=== PATIENT | female | born 2000 | race Two or more races ===

== ENCOUNTER 2022-09-14 19:10 | Emergency (ER) | payer OTHER ==
[2022-09-14 20:09] VITALS: BP 116/77
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
--- NOTE | 2022-09-14 21:16 | XRAY Report ---
PROCEDURE: Hand 3 View RT INDICATIONS: possible injury/swollen C/o pain TECHNIQUE: 3 views of the hand(s) acquired. COMPARISON: None FINDINGS: Bones: No fractures or dislocations. No suspicious bony lesions. Soft tissues: No suspicious soft tissue calcifications. IMPRESSION: No trauma found. No foreign body in the soft tissues is identified. Reviewed by: Jesse Lane MD on 09/14/2022 9:15 PM PST Approved by: Jesse Lane MD on 09/14/2022 9:15 PM [facility] Station ID: [id number]
== END 2022-09-14 20:58 | disposition home or self-care (01) ==
LOC: ED 19:10
DX: S62.514A Nondisplaced fracture of proximal phalanx of right thumb, initial encounter for closed fracture (principal); X58.XXXA Exposure to other specified factors, initial encounter
CPT/HCPCS: 99283; 99284